=== PATIENT | female | born 1965 | race Caucasian/White ===

== ENCOUNTER → 2023-09-01 13:33 | Outpatient (CLI) | payer OTHER, SELFPAY ==
--- NOTE | 2023-09-01 13:35 | DI.RAD.S_ITS ---
PROCEDURE: XR KNEE RT 3V INDICATIONS: Right knee pain TECHNIQUE: 3 views of the knee were acquired. COMPARISON: None. FINDINGS: Bones: No fractures or dislocations. No suspicious bony lesions. [id number] tricompartmental arthritic changes most severe in the medial patellofemoral compartment. Minimal periarticular osteophytes. No erosions. Lateral patellar subluxation. Soft tissues: Mild joint effusion. No suspicious soft tissue calcifications. IMPRESSION: [id number] tricompartmental arthritic change. Dictated by: Alondra Argueta M.D. on 09/01/2023 at 17:26 Approved by: Alondra Argueta M.D. on 09/01/2023 at 17:27
--- NOTE | 2023-09-01 13:35 | DI.US.S_ITS ---
PROCEDURE: US PERIPH VENOUS LOW EXTREM RT INDICATIONS: Right leg pain TECHNIQUE: Real-time imaging, as well as color and pulse Doppler interrogation, were performed of the lower extremity deep veins from the inguinal ligament to the popliteal fossa, with documentation of the visualized calf veins. COMPARISON: None. FINDINGS: The common femoral, femoral, popliteal, and the visualized calf veins are normally compressible, and free of intraluminal thrombus. Color and pulse Doppler demonstrate normal phasic intraluminal flow. There is normal augmentation response to distal compression maneuver. IMPRESSION: No findings of lower extremity deep venous thrombosis. Dictated by: Salina Talbot M.D. on 09/01/2023 at 16:39 Approved by: Salina Talbot M.D. on 09/01/2023 at 16:39
== END ==
PROVIDERS: Family Provider Physician Assistant Medical; PCP Physician Assistant Medical; Referring Provider Nurse Practitioner Family; Visit Provider Nurse Practitioner Family
DX: M79.604 Pain in right leg (principal); M25.561 Pain in right knee
CPT/HCPCS: 73562; 93971